=== PATIENT | female | born 1980 | race Caucasian/White ===

== ENCOUNTER → 2018-11-17 | Outpatient (CLI) | payer OTHER ==
[~2018-11-17] MED LIST: GADOBENATE DIMEGLUMINE 1 ML IV ONE; LORAZEPAM INJ 2 MG/ML VIAL ONE
--- NOTE | 2018-11-17 12:46 | Diagnostic Imaging Report ---
History: Twitching, weakness, atrophy, leg and arm pain Comparison studies: None Technique: Pre-contrast: Sagittal T2; axial T1-IR, MPGR, DWI, T2 FLAIR Post-contrast: axial and coronal T1. Intravenous contrast: 20 cc of MultiHance Findings: Scalp: No abnormal signal. No masses. Bone marrow: Normal in signal intensity. Brain sulci: Appropriate for age. Ventricles: Normal in size . No hydrocephalus. Extra-axial: No masses, fluid collections or hemorrhage. Parenchyma: No abnormal signal intensities. No masses, hemorrhage, acute or chronic vascular insults. No enhancing abnormalities. Suprasellar region: No abnormalities. Craniocervical junction: No abnormalities. Patent foramen magnum. No Chiari one malformation.. Vessels: Normal flow-voids in the arteries and sinuses. Incidental findings: None IMPRESSION: 1. Normal exam Signed by: DR Santos Bansal M.D. on 11/17/2018 12:42 PM
--- NOTE | 2018-11-17 12:54 | Diagnostic Imaging Report ---
History: Twitching, weakness, atrophy, leg and arm pain Comparison studies: None Technique: Sagittal T1, T2 and IR, axial T2 and axial gradient echo Intravenous contrast: None Findings: Alignment: Normal lordosis. No scoliosis. Cervicomedullary junction: No abnormalities. Patent foramen magnum. Soft tissues: No T2 hyperintense paraspinal inflammatory changes. 1.2 cm right thyroid lobe cystic and solid nodule. Spinal cord: Normal in size and signal from the foramen magnum through T3 Vertebrae: Normal in height and signal intensity. No fractures, infection or neoplasm. Degenerative changes: Disc degeneration with loss of T2 signal throughout the cervical spine. C2-C3: Patent canal and foramina C3-C4: Right central small disc osteophyte complex with patent canal and foramina C4-C5: Diffuse disc osteophyte complex with patent canal and foramina C5-C6: Diffuse disc osteophyte complex with patent canal and foramina C6-C7: Asymmetric left disc osteophyte complex and left uncinate process hypertrophy results in mild left canal stenosis and mild left foraminal narrowing C7-T1: Patent canal and foramina IMPRESSION: 1. Mild degenerative changes of the cervical spine without significant (moderate or severe) canal stenosis or foraminal narrowing. Signed by: DR Santos Bansal M.D. on 11/17/2018 12:51 PM
== END ==
LOC: MRI 09:23
PROVIDERS: ATTEND Radiology Neuroradiology
DX: G35 Multiple sclerosis (principal)
CPT/HCPCS: 70553; 72156; 81025; A9577; J2060